=== PATIENT | male | born 1960 | race Caucasian/White ===

== ENCOUNTER 2017-02-19 15:03 | Emergency (ER) | payer BC ==
[2017-02-19 15:25] VITALS: BP 138/91
--- NOTE | 2017-02-19 17:28 | UC ---
Shoulder Pain HPI - HPI Summary HPI Summary: RIGHT SHOULDER PAIN AND DECREASED ROM AFTER LIFTING A 250LB PLANER YESTERDAY. CAN NOT MOVE AT SHOULDER. SLIGHT TINGLING IN FINGERS. - History of Current Complaint Chief Complaint: UCUpperExtremity Stated Complaint: RIGHT SHOULDER INJURY Time Seen by Provider: 02/19/17 16:53 Hx Obtained From: Patient, Family/Psychiatric Security Nurse - GF Onset/Duration: Gradual Onset, Lasting Hours Timing: Constant Severity Initially: Moderate Severity Currently: Severe Location Of Pain: Is Discrete @ - RIGHT SHOULDER Pain Intensity: 10 Pain Scale Used: 0-10 Numeric Character: Sharp Aggravating Factor(s): Movement Alleviating Factor(s): Nothing Associated Signs And Symptoms: Negative: Swelling, Redness, Bruising Related History: Dominant Hand Right - Allergies/Home Medications Allergies/Adverse Reactions: Allergies Allergy/AdvReac Type Severity Reaction Status Date / Time No Known Allergies Allergy Verified 02/19/17 15:18 Home Medications: Home Medications Flexeril 10 MG TAB* 10 mg PO TID PRN 02/19/17 [History Confirmed 02/19/17] PMH/Surg Hx/FS Hx/Imm Hx Previously Healthy: Yes - Surgical History Surgical History: Yes Surgery Procedure, Year, and Place: left elbow replaced - Family History Known Family History: Negative: Hypertension - Social History Alcohol Use: Rare Substance Use Type: None Smoking Status (MU): Never Smoked Tobacco Review of Systems Constitutional: Negative Skin: Negative Respiratory: Negative Cardiovascular: Negative Gastrointestinal: Negative Musculoskeletal: Arthralgia, Decreased ROM, Myalgia All Other Systems Reviewed And Are Negative: Yes Physical Exam Triage Information Reviewed: Yes Appearance: Well-Appearing, Well-Nourished, Pain Distress - MODERATE Vital Signs: Initial Vital Signs Temp 98 F 02/19/17 15:19 Pulse 105 02/19/17 15:19 Resp 22 02/19/17 15:19 BP 138/91 02/19/17 15:19 Pulse Ox 100 02/19/17 15:19 Vital Signs Reviewed: Yes Eyes: Positive: Conjunctiva Clear ENT: Positive: Hearing grossly normal Neck: Positive: Supple Respiratory: Positive: No respiratory distress, No accessory muscle use Cardiovascular: Positive: Pulses Normal Abdomen Description: Positive: Soft Musculoskeletal: Positive: No Edema, ROM Limited @ - RIGHT SHOULDER, Other: - TTP RIGHT AC JOINT AND RIGHT TRAP MUSCLE Neurological: Positive: Alert Psychological: Positive: Age Appropriate Behavior Skin: Negative: rashes Diagnostics - Radiology AC JOINT XRAYS Xray Interpretation: No Acute Changes Radiology Interpretation Completed By: Radiologist Shoulder Course/Dx - Differential Dx/Diagnosis Provider Diagnoses: RIGHT SHOULDER SPRAIN Discharge - Discharge Plan Condition: Stable Disposition: HOME Prescriptions: HYDROcodone/ACETAMIN 5-325 MG* [[place] 5-325 TAB*] 1 tab PO Q6H PRN #15 tab MDD 4 PRN Reason: Pain Patient Education Materials: Shoulder Sprain (ED) Referrals: Solomon Romero MD [Medical Doctor] - As Soon As Possible Additional Instructions: XRAYS TODAY UNREMARKABLE. GO TO THE ER WITHOUT FAIL IF YOUR SYMPTOMS WORSEN. CALL [facility] FIRST THING TOMORROW MORNING TO A FOLLOW-UP APPT.
--- NOTE | 2017-02-19 17:33 | RAD ---
INDICATION: AC joint pain COMPARISON: None AP views of the AC joints with and without weights show no evidence of AC joint separation. 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 The lung apices are clear IMPRESSION: NO EVIDENCE OF AC JOINT SEPARATION
== END 2017-02-19 18:15 | disposition home or self-care (01) ==
LOC: UCEAST 15:03
DX: S43.401A Unspecified sprain of right shoulder joint, initial encounter (principal); X50.9XXA Other and unspecified overexertion or strenuous movements or postures, initial encounter; Y92.9 Unspecified place or not applicable; Z96.622 Presence of left artificial elbow joint
CPT/HCPCS: 73050; 99202; G0463